=== PATIENT | female | born 1930 | race American Indian/Alaskan Native ===

== ENCOUNTER 2018-06-19 12:24 | Emergency (ER) | payer MEDICARE, OTHER ==
[2018-06-19 12:25] VITALS: BMI 25.8
[2018-06-19 12:47] VITALS: TEMP 97.6
--- NOTE | 2018-06-19 12:51 | ED PDOC ---
Arrival/HPI - General Chief Complaint: Syncope Time Seen by Provider: 06/19/18 12:31 Historian: Patient, Family - History of Present Illness Narrative History of Present Illness (Text): 06/19/18 12:51 A 88 year old female, whose past medical history includes diabetes and hypertension, is accompanied by daughter, JOVANY, presents to the emergency department for generalized weakness. Patient was given 1 tube of glucagon and became responsive. Per daughter, patient was in [employer] when she suddenly became unresponsive and daughter called an ambulance immediately. States in the past, patient was experiencing weakness and syncopal episodes due to low potassium levels and dehydration. Patient's blood sugar here in the ER is 170. Patient denies any other complaints at this time. Daughter mentions she asked patient if she may have "doubled-up" on her medications, to which patient denied, however daughter is uncertain. Also, notes patient has told her she is unable to sleep well during the night. PMD: Dr. Zavala ([facility]) Past Medical History - Provider Review Nursing Documentation Reviewed: Yes - Infectious Disease Hx of Infectious Diseases: None - Cardiac Hx Pacemaker: No - Pulmonary Hx Respiratory Disorders: No - Neurological Hx Paralysis: No - HEENT Hx HEENT Disorder: No - Renal Hx Renal Disorder: No - Endocrine/Metabolic Hx Endocrine Disorders: Yes Hx Diabetes Mellitus Type 2: Yes - Hematological/Oncological Hx Blood Transfusions: No Hx Blood Transfusion Reaction: No - Integumentary Hx Dermatological Disorder: No - Musculoskeletal/Rheumatological Hx Musculoskeletal Disorders: No - Gastrointestinal Hx Gastrointestinal Disorders: Yes Hx Gall Bladder Disease: Yes Hx Gastritis: Yes Hx Gastroesophageal Reflux: Yes - Genitourinary/Gynecological Hx Genitourinary Disorders: No - Psychiatric Hx Emotional Abuse: No Hx Physical Abuse: No Hx Substance Use: No - Surgical History Hx Appendectomy: Yes Hx Cholecystectomy: Yes Hx Hysterectomy: Yes Other/Comment: POST CYSTO 5--16,LEFT KNEE SURGERY - Anesthesia Hx Anesthesia Reactions: No Hx Malignant Hyperthermia: No - Suicidal Assessment Feels Threatened In Home Enviroment: No Family/Social History - Physician Review Nursing Documentation Reviewed: Yes Family/Social History: No Known Family HX Smoking Status: Never Smoked Hx Alcohol Use: No Hx Substance Use: No Allergies/Home Meds Allergies/Adverse Reactions: Allergies No Known Allergies Allergy (Verified 10/22/15 20:43) Home Medications: Home Meds Medication Instructions Recorded Confirmed Aspirin [Ecotrin] 81 mg PO DAILY 09/19/15 10/22/15 Carvedilol [Coreg] 25 mg PO BID 09/19/15 10/22/15 Insulin Aspart Prot/Insuln Asp 15 units SC ACBD 09/19/15 10/22/15 [Novolog Mix 70-30 Vial] Lipase/Protease/Amylase [Creon Dr 1 each PO TID 09/19/15 10/22/15 12,000 Units Capsule] Lisinopril [Zestril] 10 mg PO DAILY 09/19/15 10/22/15 Multivit-Min/FA/Calcium/Vit K1 1 each PO DAILY 09/19/15 10/22/15 [One-A-Day Women's 50+ Tablet] Valsartan [Diovan] 80 mg PO DAILY 09/19/15 10/22/15 DULoxetine [Cymbalta] 21 tab PO HS 10/08/15 10/22/15 Review of Systems - Physician Review All systems were reviewed & negative as marked: Yes - Review of Systems Constitutional: Other (weakness) Respiratory: absent: SOB, Cough Cardiovascular: absent: Chest Pain Gastrointestinal: absent: Abdominal Pain, Diarrhea, Nausea, Vomiting Physical Exam Appearance: Positive for: Other (drowsy) Pain Distress: None Mental Status: Positive for: Lethargic. No: Alert and Oriented X 3 (alert and oriented x 2) - Systems Exam Head: Present: Atraumatic, Normocephalic Pupils: Present: PERRL Extroacular Muscles: Present: EOMI Conjunctiva: Present: Normal Mouth: Present: Moist Mucous Membranes Neck: Present: Normal Range of Motion Respiratory/Chest: Present: Clear to Auscultation, Good Air Exchange. No: Respiratory Distress, Accessory Muscle Use Cardiovascular: Present: Regular Rate and Rhythm, Normal S1, S2. No: Murmurs Abdomen: No: Tenderness, Distention, Peritoneal Signs Back: Present: Normal Inspection Upper Extremity: Present: Normal Inspection. No: Cyanosis, Edema Lower Extremity: Present: Normal Inspection. No: Edema Neurological: Present: GCS=15, CN II-XII Intact, Speech Normal Skin: Present: Warm, Dry, Normal Color. No: Rashes Psychiatric: Present: Alert, Oriented x 3, Normal Insight, Normal Concentration Medical Decision Making ED Course and Treatment: 06/19/18 12:52 Impression: 88 year old female with generalized weakness and syncopal episode. Differential Diagnoses Include But Are Not Limited To: --UTI --DKA --Vasovagal episode Plan: --Rocephin --Urinalysis --Urine Culture -- Chest X-ray -- Labs -- Urinalysis -- Reassess and disposition Progress Notes: 06/19/18 15:58 Labs reviewed with no leukocytosis noted. Glucose noted to be 200. UA positive for nitrites. Will empirically treat patient for UTI. U - Lab Interpretations Lab Results: 06/19/18 12:40 06/19/18 12:40 Lab Results 06/19/18 15:19: Urine Color Yellow, Urine Appearance Sl cloudy, Urine pH 6.0, Ur Specific [place] 1.015, Urine Protein Negative, Urine Glucose (UA) Negative, Urine Ketones Negative, Urine Blood Trace-intact H, Urine Nitrate Positive H, Urine Bilirubin Negative, Urine Urobilinogen 0.2, Ur Leukocyte Esterase Moderate H, Urine RBC 5 - 10 H, Urine WBC 25 - 30 H, Ur Epithelial Cells Many H, Amorphous Sediment Trace, Urine Bacteria Small 06/19/18 12:40: Sodium 137, Potassium 4.4, Chloride 102, Carbon Dioxide 26, Anion Gap 13, BUN 27 H, Creatinine 1.4 H, Est GFR ( Amer) 43, Est GFR (Non-Af Amer) 35, Random Glucose 200 H, Calcium 10.0, Magnesium 1.9, Total Bilirubin 0.4, AST 31, ALT 23, Alkaline Phosphatase 78, Total Protein 8.3, Albumin 4.2, Globulin 4.0, Albumin/Globulin Ratio 1.1, B-Hydroxybutyrate Pending 06/19/18 12:40: WBC 5.3, RBC 4.20, Hgb 12.8, Hct 38.4, MCV 91.4, MCH 30.5, MCHC 33.3, RDW 15.1 H, Plt Count 315, MPV 9.1, Gran % 43.3 L, Lymph % (Auto) 45.2 H, Evans % (Auto) 10.0 H, Eos % (Auto) 1.1 L, Baso % (Auto) 0.4, Gran # 2.30, Lymph # (Auto) 2.4, Evans # (Auto) 0.5, Eos # (Auto) 0.1, Baso # (Auto) 0.02 I have reviewed the lab results: Yes - RAD Interpretation Narrative RAD Interpretations (Text): 06/19/2018 13:09 Chest X-ray IMPRESSION: No active disease. Dictator: Hardy Figueroa MD Radiology Orders: 06/19/18 12:33 CHEST PORTABLE [RAD] Stat - Scribe Statement The provider has reviewed the documentation as recorded by the Scribe Kelsey Shannon Provider Scribe Attestation: All medical record entries made by the Scribe were at my direction and personally dictated by me. I have reviewed the chart and agree that the record accurately reflects my personal performance of the history, physical exam, medical decision making, and the department course for this patient. I have also personally directed, reviewed, and agree with the discharge instructions and disposition. Disposition/Present on Arrival - Present on Arrival Any Indicators Present on Arrival: Yes History of DVT/PE: No History of Uncontrolled Diabetes: Yes Urinary Catheter: No History of Decub. Ulcer: No History Surgical Site Infection Following: None - Disposition Have Diagnosis and Disposition been Completed?: Yes Diagnosis: Hypoglycemia, UTI (urinary tract infection) Disposition: HOME/ ROUTINE Disposition Time: 16:12 Patient Plan: Discharge Condition: IMPROVED Discharge Instructions (ExitCare): Urinary Tract Infection, Adult (DC), Low Blood Sugar, Adult (DC) Print Language: GREENLANDIC Additional Instructions: All medical record entries made by the Scribe were at my direction and personally dictated by me. I have reviewed the chart and agree that the record accurately reflects my personal performance of the history, physical exam, medical decision making, and the department course for this patient. I have also personally directed, reviewed, and agree with the discharge instructions and disposition. Prescriptions: Cephalexin [cephalexin] 500 mg PO BID 5 Days #10 cap Referrals: Sheldon Marie MD [Primary Care Provider] - Follow up with primary Forms: [employer] (Malagasy)
[2018-06-19 13:05] LABS: BASO # 0.02 K/mm3 (0.0-2.0); BASO % 0.4 % (0.0-3.0); EOS # 0.1 (0.0-0.7); EOS % 1.1 % (1.5-5.0); GRAN # 2.3 (1.4-6.5); GRAN % 43.3 % (50.0-68.0); HEMOGLOBIN 12.8 g/dL (12.0-16.0); LYMPH # 2.4 (1.2-3.4); LYMPH % 45.2 % (22.0-35.0); MEAN CELL VOLUME 91.4 fl (80.0-105.0); MEAN CORPUSCULAR HEMOGLOBIN 30.5 pg (25.0-35.0); MEAN CORPUSCULAR HGB CONC 33.3 g/dl (31.0-37.0); MEAN PLATELET VOLUME 9.1 fl (7.0-11.0); MONO # 0.5 (0.1-0.6); RBC 4.2 10^6/uL (3.5-6.1); RED CELL DISTRIBUTION WIDTH 15.1 % (11.5-14.5); WHITE BLOOD COUNT 5.3 10^3/uL (4.5-11.0)
--- NOTE | 2018-06-19 13:12 | RAD ---
Date of service: 06/19/2018 HISTORY: hypoglycemia COMPARISON: Chest radiograph dated 10/22/2015. FINDINGS: LUNGS: No active pulmonary disease. PLEURA: No significant pleural effusion identified, no pneumothorax apparent. CARDIOVASCULAR: Aortic atherosclerotic calcifications. Cardiomediastinal silhouette stably enlarged. OSSEOUS STRUCTURES: Unchanged. VISUALIZED UPPER ABDOMEN: Normal. OTHER FINDINGS: None. IMPRESSION: No active disease.
[2018-06-19 13:19] LABS: ALB/GLOB RATIO 1.1 (1.1-1.8); ALBUMIN 4.2 g/dL (3.0-4.8)
[2018-06-19] MEDS ORDERED: Sodium Chloride 0.9% 1,000 ML IV STA (13:39)
[2018-06-19 15:55] LABS: URINE APPEARANCE SL CLOUDY (CLEAR); URINE BILIRUBIN NEGATIVE (NEGATIVE); URINE BLOOD TRACE-INTACT (NEGATIVE); URINE COLOR YELLOW (YELLOW); URINE GLUCOSE (UA) NEGATIVE (NEGATIVE); URINE LEUKOCYTE ESTERASE MODERATE Leu/uL (NEGATIVE); URINE PROTEIN NEGATIVE mg/dL (<30 mg/dL); URINE UROBILINOGEN 0.2 E.U./dL (<1 E.U./dL)
[2018-06-19 15:57] LABS: URINE AMORPHOUS SEDIMENT TRACE /hpf; URINE BACTERIA SMALL /hpf; URINE EPITHELIAL CELLS MANY /hpf (0-5); URINE WBC 25 - 30 /hpf (0-6)
[2018-06-19] MEDS ORDERED: cefTRIAXone 1 gm 1 GM/100 ML BAG IVPB STA (15:57)
[2018-06-19 17:13] VITALS: PULSE 88; RESP 18; O2SAT 98
[2018-06-19 17:16] VITALS: BP 135/88
== END 2018-06-19 16:23 | disposition home or self-care (01) ==
LOC: ED 12:24
DX: N39.0 Urinary tract infection, site not specified (principal); E11.649 Type 2 diabetes mellitus with hypoglycemia without coma; I10 Essential (primary) hypertension
CPT/HCPCS: 71045; 80053; 81001; 82009; 83735; 85025; 87086; 87181; 96361; 96365; 99285; J0696; J7030